=== PATIENT | male | born 1955 | race Caucasian/White ===

== ENCOUNTER 2023-04-10 15:03 | Outpatient (OUT) | payer MEDICARE, OTHER, MEDICAID, SELFPAY ==
[2023-04-10 06:51] LABS: Basophils Percent Auto 0.5 % (0.2-2.0); Eosinophils Absolute Auto 0.1 10^3/uL (0.0-0.7); Eosinophils Percent Auto 1.6 % (0.9-7.0); Hematocrit 45.6 % (42.0-54.0); Hemoglobin 15.2 g/dL (14.0-18.0); Immature Granulocytes Abs Auto 0.01 10^3/uL (0.00-0.03); Immature Granulocytes Pct Auto 0.2 % (0.0-0.5); Mean Corpuscular HGB Conc 33.3 g/dL (29.9-35.2); Mean Corpuscular Volume 90.1 fL (80.0-94.0); Mean Platelet Volume 10.3 fL (9.5-13.5); Monocytes Absolute Auto 0.6 10^3/uL (0.3-0.8); Neutrophils Percent Auto 51.7 % (43.0-75.0); Platelet Count 174 10^3/uL (150-450); Red Blood Count 5.06 10^6/uL (4.70-6.10); Red Cell Distribution Width 13.2 % (11.0-15.0); White Blood Count 5.7 10^3/uL (4.0-11.0)
[2023-04-10 07:13] LABS: Alanine Aminotransferase 33 U/L (16-63); Albumin Globulin Ratio 1.1; Albumin Level 3.9 g/dL (3.4-5.0); Alkaline Phosphatase 74 U/L (46-116); Anion Gap 11.1; Aspartate Amino Transferase 22 U/L (15-37); BUN Creatinine Ratio 21.2; Bilirubin Total 0.7 mg/dL (0.2-1.0); Calcium 9.1 mg/dL (8.5-10.1); Carbon Dioxide 29.9 mmol/L (21.0-32.0); Chloride 103 mmol/L (98-107); Chol HDL Ratio 3.2; Cholesterol 232 mg/dL (<=200); Estimated GFR (African America >60 (>=60); Estimated GFR (Non-African Ame >60 (>=60); Globulin 3.6 g/dL; Glucose 90 mg/dL (74-106); HDL Cholesterol 73 mg/dL (40-60); Sodium 140 mmol/L (136-145); Total Protein 7.5 g/dL (6.4-8.2); Triglycerides 40 mg/dL (<=150)
[2023-04-10 08:44] LABS: Prostate Specific Antigen Scrn 1.87 ng/mL (<=4.00)
== END 2023-04-10 15:04 | disposition home or self-care (01) ==
PROVIDERS: PCP Internal Medicine; Visit Provider Internal Medicine
DX: Z00.00 Encounter for general adult medical examination without abnormal findings (principal); Z12.5 Encounter for screening for malignant neoplasm of prostate
CPT/HCPCS: 36415; 80053; 80061; 85025; G0103

== ENCOUNTER 2024-04-21 10:19 | Outpatient (OUT) | payer MEDICARE, OTHER, MEDICAID, SELFPAY ==
[2024-04-21 13:10] LABS: Prostate Specific Antigen Scrn 1.41 ng/mL (<=4.00)
== END 2024-04-21 10:20 | disposition home or self-care (01) ==
LOC: LAB 10:20
PROVIDERS: PCP Internal Medicine; Visit Provider Internal Medicine
DX: Z12.5 Encounter for screening for malignant neoplasm of prostate (principal)
CPT/HCPCS: 36415; G0103

== ENCOUNTER 2025-04-22 06:31 | Outpatient (OUT) | payer MEDICARE, OTHER, SELFPAY ==
[2025-04-22 07:00] LABS: Hematocrit 47.9 % (42.0-54.0); Hemoglobin 16.1 g/dL (14.0-18.0); Immature Granulocytes Abs Auto 0.01 10^3/uL (0.00-0.03); Immature Granulocytes Pct Auto 0.2 % (0.0-0.5); Lymphocytes Absolute Auto 1.9 10^3/uL (1.2-3.8); Mean Corpuscular HGB Conc 33.6 g/dL (29.9-35.2); Mean Corpuscular Hemoglobin 30.1 pg (25.9-34.0); Mean Corpuscular Volume 89.7 fL (80.0-94.0); Platelet Count 177 10^3/uL (150-450); Red Blood Count 5.34 10^6/uL (4.70-6.10); White Blood Count 5.4 10^3/uL (4.0-11.0)
[2025-04-22 07:41] LABS: Alanine Aminotransferase 34 U/L (16-63); Albumin Globulin Ratio 1.1; Albumin Level 3.7 g/dL (3.4-5.0); Alkaline Phosphatase 69 U/L (46-116); Anion Gap 13.1; Aspartate Amino Transferase 28 U/L (15-37); Blood Urea Nitrogen 16.0 mg/dL (7.0-18.0); Calcium 8.9 mg/dL (8.5-10.1); Carbon Dioxide 28.8 mmol/L (21.0-32.0); Chloride 103 mmol/L (98-107); Cholesterol 214 mg/dL (<=200); Estimated GFR (African America >60 (>=60 mL/min/1.73m^2); Estimated GFR (Non-African Ame >60 (>=60 mL/min/1.73m^2); Globulin 3.5 g/dL; Glucose 84 mg/dL (74-106); HDL Cholesterol 78 mg/dL (40-60); Potassium 3.9 mmol/L (3.5-5.1); Sodium 141 mmol/L (136-145); Total Protein 7.2 g/dL (6.4-8.2); Triglycerides 35 mg/dL (<=150); VLDL CHOLESTEROL 7.0 mg/dL
== END 2025-04-22 06:32 | disposition home or self-care (01) ==
LOC: LAB 06:31
PROVIDERS: PCP Internal Medicine; Visit Provider Internal Medicine
DX: I73.00 Raynaud's syndrome without gangrene (principal); E78.00 Pure hypercholesterolemia, unspecified; R73.01 Impaired fasting glucose; R53.83 Other fatigue; Z12.5 Encounter for screening for malignant neoplasm of prostate
CPT/HCPCS: 36415; 80053; 80061; 83036; 85025; G0103

== ENCOUNTER 2025-06-06 06:42 | Emergency (ER) | payer MEDICARE, OTHER, SELFPAY ==
[2025-06-06 06:48] VITALS: BP 155/98; PULSE 78; TEMP 36.7; O2SAT 97; BMI 20.5
[2025-06-06] MEDS: DEXAMETHASONE 4 MG TABLET 10 MG PO (07:42)
--- NOTE | 2025-06-06 07:55 | ED_ITS ---
HPI HPI - General Adult General Chief complaint: Upper Respiratory Infection Stated complaint: SORE THROAT Time Seen by Provider: 06/06/25 07:03 Source: patient Mode of arrival: walk-in History of Present Illness HPI narrative: Patient is a 70-year-old male presented to the emergency department with 24-hour history of a sore throat. Patient states he noticed his throat was red yesterday. He called his PCP, who told him to gargle salt water. He has been taking [id number] medications with some relief. Today, he noted a mild cough as well. He denies any chest pain or shortness of breath. No fevers or chills. No abdominal pain, nausea, or vomiting. He is otherwise healthy with no chronic medical conditions. He denies any difficulty breathing or swallowing. Related Data Allergies Allergy/AdvReac Type Severity Reaction Status Date / Time acetaminophen (From Vicodin) AdvReac Abdominal Verified 06/06/25 06:47 Pain hydrocodone (From Vicodin) AdvReac Abdominal Verified 06/06/25 06:47 Pain Review of Systems ROS Status of ROS 10 or more systems reviewed and unremark able except as noted in history and below PFSH PFSH Social History Little interest or pleasure in doing things: not at all Feeling down, depressed, or hopeless: not at all Exam Narrative Exam Narrative: CONSTITUTIONAL: Well-appearing, answering questions and following commands appropriately SKIN: Was warm and dry. EYES: Sclerae white. EARS, NOSE, THROAT: Moist oral mucosa. Mild posterior pharyngeal erythema. No tonsillar enlargement exudates. No trismus. Uvula midline. No peritonsillar abscess. No neck tenderness or swelling. No lymphadenopathy. No trismus. Speaking with normal voice. RESPIRATORY: Clear to auscultation bilaterally, no wheezes, crackles, or stridor, no use of accessory muscles CARDIOVASCULAR: Normal rate and regular rhythm. There is no S3, S4, murmur, rub. GASTROINTESTINAL: Abdomen is nondistended. MUSCULOSKELETAL: No peripheral edema. NEUROLOGIC: Patient is awake and alert. Facies were symmetrical. Constitutional Vital Signs, click to edit/add: Last Vital Signs Temp 98.0 F 06/06/25 06:48 Pulse 78 06/06/25 06:48 Resp 20 06/06/25 06:48 BP 155/98 H 06/06/25 06:48 Pulse Ox 97 06/06/25 06:48 O2 Del Method Room Air 06/06/25 06:48 Course Vital Signs Vital signs: Vital Signs Temperature 98.0 F 06/06/25 06:48 Pulse Rate 78 06/06/25 06:48 Respiratory Rate 20 06/06/25 06:48 Blood Pressure 155/98 H 06/06/25 06:48 Pulse Oximetry 97 06/06/25 06:48 Oxygen Delivery Method Room Air 06/06/25 06:48 Temperature 98.0 F 06/06/25 06:48 Pulse Rate 78 06/06/25 06:48 Respiratory Rate 20 06/06/25 06:48 Blood Pressure 155/98 H 06/06/25 06:48 Pulse Oximetry 97 06/06/25 06:48 Oxygen Delivery Method Room Air 06/06/25 06:48 Medical Decision Making MDM Narrative Medical decision making narrative: Patient is a 70-year-old male presenting to the emergency department with a 24- hour history of sore throat. His vital signs are within normal limits. He is afebrile and hemodynamically stable. He is otherwise healthy with no chronic medical conditions. Patient's physical examination and history was consistent with a viral URI, viral pharyngitis. His streptococcal antigen screen was negative. I do not believe he has a serious bacterial infection that would warrant antibiotic treatment. There is no evidence of peritonsillar abscess. His lungs are clear and is saturating 100% on RA, low concern for pneumonia. He generally appears well without any concern for respiratory/airway compromise. He was given a dose of oral Decadron for symptomatic treatment. I do believe the patient is stable for discharge at this time. They were instructed to follow up with his PCP for further care. Return precautions were given including any new or worsening symptoms. Patient understands and agrees to the plan. FINAL IMPRESSION: #Acute viral pharyngitis DISPOSITION: Discharged home CONDITION: Good Lab Data Lab results reviewed: Yes I reviewed the patient's lab results Labs: Lab Results 06/06/25 Range/Units 06:50 Streptococcus Screen Negative Discharge Plan Discharge Chief Complaint: Upper Respiratory Infection Clinical Impression: Upper respiratory infection, Pharyngitis Patient Disposition: Home, Self-Care Time of Disposition Decision: 07:17 Condition: Good Mode of Transportation: Private Vehicle Print Language: Gabonese Instructions: Pharyngitis (ED) Referrals: Gian Monroy DO [Primary Care Provider, Internal Medicine] - 1 week Discharge Date/Time: 06/06/25 07:51
== END 2025-06-06 07:51 | disposition home or self-care (01) ==
PROVIDERS: Internal Medicine; Emergency Provider Student in an Organized Health Care Education/Training Program; PCP Internal Medicine
DX: J02.9 Acute pharyngitis, unspecified (principal); J06.9 Acute upper respiratory infection, unspecified
CPT/HCPCS: 87070; 87880; 99283; J8540